=== PATIENT | female | born 1985 | race Caucasian/White ===

== ENCOUNTER 2016-07-30 07:03 | Emergency (ER) | payer MEDICAID, OTHER ==
[2016-07-30 07:19] VITALS: BP 133/84; PULSE 95; RESP 17; TEMP 98.6
[2016-07-30] MEDS ORDERED: AZITHROMYCIN 500 MG TAB PO STA (07:48)
[2016-07-30] MEDS ORDERED: IBUPROFEN 600 MG TAB PO STA (07:48)
--- NOTE | 2016-07-30 07:54 | ED ---
General Adult HPI - General Chief complaint: ENT Stated complaint: Sore Throat Time Seen by Provider: 07/30/16 07:40 Source: patient, RN notes reviewed Mode of arrival: ambulatory Limitations: no limitations - History of Present Illness Initial comments: Patient is a pleasant 30-year-old female present to the emergency Department with sore throat. Symptoms were present for a week. Patient has been on Augmentin. Patient was also started on steroids. Patient did go to the urgent Center. Patient was tested positive for strep however tested negative for mono. Patient is tolerating liquids. Patient does have mild cough and mild rhinorrhea. Patient does have swollen lymph nodes. Patient has occasional fevers. - Related Data Previous Rx's Medication Instructions Recorded Azithromycin [Zithromax Z-pack] 250 mg PO DIRECTED #6 tab 07/30/16 Allergies Allergy/AdvReac Type Severity Reaction Status Date / Time No Known Allergies Allergy Verified 07/30/16 07:15 Review of Systems ROS Statement: Those systems with pertinent positive or pertinent negative responses have been documented in the HPI. ROS Other: All systems not noted in ROS Statement are negative. Constitutional: Reports: fever, chills Eyes: Denies: eye pain ENT: Reports: throat pain Respiratory: Reports: cough. Denies: dyspnea Cardiovascular: Denies: chest pain Endocrine: Denies: fatigue Gastrointestinal: Denies: abdominal pain Genitourinary: Denies: dysuria Musculoskeletal: Denies: back pain Skin: Denies: rash Neurological: Denies: weakness Past Medical History Past Medical History: No Reported History History of Any Multi-Drug Resistant Organisms: None Reported Past Surgical History: No Surgical Hx Reported Past Psychological History: No Psychological Hx Reported Smoking Status: Current every day smoker Past Alcohol Use History: Occasional Past Drug Use History: None Reported General Exam Limitations: no limitations General appearance: alert, in no apparent distress Head exam: Present: atraumatic Eye exam: Present: normal appearance, PERRL ENT exam: Present: other (Pharyngeal erythema with purulent drainage on the tonsils. No signs of peritonsillar abscess.) Neck exam: Present: lymphadenopathy ([place]) Respiratory exam: Present: normal lung sounds bilaterally Cardiovascular Exam: Present: regular rate, normal rhythm Extremities exam: Present: normal inspection Neurological exam: Present: alert Psychiatric exam: Present: normal affect, normal mood Skin exam: Absent: rash Course Vital Signs 07/30/16 07:15 Temperature 98.6 F Pulse Rate 95 Respiratory 17 Rate Blood Pressure 133/84 O2 Sat by Pulse 98 Oximetry Disposition Clinical Impression: Pharyngitis Disposition: HOME SELF-CARE Condition: Stable Instructions: Pharyngitis (ED) Additional Instructions: Please follow-up with primary care physician in the next couple days for recheck. Return for not tolerating fluids, uncontrolled fevers, difficulty breathing, worsening symptoms or other concerns. Prescriptions: Azithromycin [Zithromax Z-pack] 250 mg PO DIRECTED #6 tab Referrals: None,Stated [Primary Care Provider] - 1-2 days Mason Rankin MD [STAFF PHYSICIAN] - 1-2 days Blas Lombardo MD [STAFF PHYSICIAN] - 1-2 days
== END 2016-07-30 08:01 | disposition home or self-care (01) ==
LOC: EC 07:03
DX: J02.9 Acute pharyngitis, unspecified (principal); F17.200 Nicotine dependence, unspecified, uncomplicated
CPT/HCPCS: 99282